=== PATIENT | male | born 1980 | race African-American/Black ===

== ENCOUNTER 2021-10-13 15:42 | Emergency (ER) | payer SELFPAY ==
[~2021-10-13] VITALS: Ht 182 cm; Wt 72.0 kg
[2021-10-13] MEDS ORDERED: fentaNYL INJ 100 MCG/2 ML AMP ONE (15:50)
[2021-10-13 15:54] LABS: BASOPHILS % (AUTO) 0 % (0-10); EOSINOPHILS % (AUTO) 1 % (0-10); HEMATOCRIT 42 % (40-54); HEMOGLOBIN 13.6 g/dL (13.3-17.7); LYMPHOCYTES # (AUTO) 2.5 10^3/uL (1.0-4.0); LYMPHOCYTES % (AUTO) 31 % (12-44); MEAN CORPUSCULAR HEMOGLOBIN 32 pg (25-34); MEAN CORPUSCULAR HGB CONC 33 g/dL (32-36); MEAN CORPUSCULAR VOLUME 97 fL (80-99); MEAN PLATELET VOLUME 9.4 fL (9.0-12.2); MONOCYTES # (AUTO) 0.5 10^3/uL (0.0-1.0); MONOCYTES % (AUTO) 6 % (0-12); NEUTROPHILS % (AUTO) 61 % (42-75); PLATELET COUNT 367 10^3/uL (130-400); WHITE BLOOD COUNT 8.1 10^3/uL (4.3-11.0)
[2021-10-13] MEDS ORDERED: fentaNYL INJ 100 MCG/2 ML AMP IVP ONE (16:00)
[2021-10-13 16:05] LABS: ALBUMIN 4.4 GM/DL (3.2-4.5); CHLORIDE 107 MMOL/L (98-107); POTASSIUM 3.3 MMOL/L (3.6-5.0); SODIUM 145 MMOL/L (135-145)
[2021-10-13 16:06] LABS: CALCIUM 9.8 MG/DL (8.5-10.1)
[2021-10-13 16:07] LABS: GLUCOSE 102 MG/DL (70-105); TOTAL PROTEIN 8.3 GM/DL (6.4-8.2)
[2021-10-13 16:08] LABS: CARBON DIOXIDE 22 MMOL/L (21-32)
[2021-10-13 16:09] LABS: BILIRUBIN,TOTAL 0.6 MG/DL (0.1-1.0)
[2021-10-13 16:11] LABS: ALKALINE PHOSPHATASE 86 U/L (40-136); CREATININE SERUM 0.99 MG/DL (0.60-1.30); GFR ESTIMATED 97
[2021-10-13 16:12] LABS: BUN/CREATININE RATIO 13
[2021-10-13 16:14] LABS: ALANINE AMINOTRANSFERASE 11 U/L (0-55)
[2021-10-13] MEDS ORDERED: HYDROmorphone 2 MG/ML VIAL (DILAUDID) IV ONE ×3 (16:15→20:45)
[2021-10-13] MEDS ORDERED: LORazepam INJ 2 MG/ML (ATIVAN) VIAL IVP ONE (16:15)
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
[2021-10-13] MEDS ORDERED: NS 100 ML (IVPB) BAG IV ONE (17:15)
[2021-10-13] MEDS ORDERED: IOHEXOL 350 MG/ML 100 ML (OMNIPAQUE 350) VIAL IV ONE (17:15)
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
--- NOTE | 2021-10-13 17:32 | Diagnostic Imaging Report ---
INDICATION: Leg pain. EXAMINATION: Four views were obtained. FINDINGS: The alignment is normal. There is no acute fracture or dislocation. The left hip and knee are grossly unremarkable. IMPRESSION: No acute fracture or dislocation. Dictated by: Dictated on workstation # [id number]
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
--- NOTE | 2021-10-13 17:48 | Diagnostic Imaging Report ---
INDICATION: Pain. EXAMINATION: Two views were obtained. FINDINGS: The alignment is normal. There is no fracture or dislocation. Soft tissues are unremarkable. IMPRESSION: No acute fracture or dislocation in the left forearm. Dictated by: Dictated on workstation # [id number]
--- NOTE | 2021-10-13 17:49 | Diagnostic Imaging Report ---
INDICATION: Pain. EXAMINATION: Two views were obtained. FINDINGS: There is a comminuted fracture of the left humeral head and neck. There also may be an anterior shoulder dislocation. Distal humerus is intact. IMPRESSION: Comminuted fracture with likely dislocation of the proximal left humerus, as described. Dictated by: Dictated on workstation # [id number]
--- NOTE | 2021-10-13 17:51 | Diagnostic Imaging Report ---
INDICATION: Pain. FINDINGS: There is a comminuted fracture of the proximal left humeral head and neck. The humerus also appears to be dislocated anteriorly. The glenoid and AC joint appear to be intact. Left lung is clear. IMPRESSION: Comminuted fracture/dislocation of the left glenohumeral joint, as described. Dictated by: Dictated on workstation # [id number]
--- NOTE | 2021-10-13 18:07 | Diagnostic Imaging Report ---
INDICATION: Pain. FINDINGS: There is a minimally displaced fracture of the proximal fibula. Distal tibia and fibula appear to be intact. Ankle mortise is symmetric. Soft tissues are unremarkable. IMPRESSION: Minimally displaced fracture through the proximal left fibular diaphysis. Dictated by: Dictated on workstation # [id number]
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
[2021-10-13] MEDS ORDERED: LACTATED RINGERS 1,000 ML IV ONE (20:15)
[2021-10-13 21:06] VITALS: BP 144/98
== END 2021-10-13 21:08 | disposition short-term general hospital (02) ==
LOC: ER 15:44
DX: S06.0X1A Concussion with loss of consciousness of 30 minutes or less, initial encounter (principal); S82.832A Other fracture of upper and lower end of left fibula, initial encounter for closed fracture; S42.92XA Fracture of left shoulder girdle, part unspecified, initial encounter for closed fracture; R40.2140 Coma scale, eyes open, spontaneous, unspecified time; R40.2250 Coma scale, best verbal response, oriented, unspecified time; R40.2360 Coma scale, best motor response, obeys commands, unspecified time; F17.210 Nicotine dependence, cigarettes, uncomplicated; V03.10XA Pedestrian on foot injured in collision with car, pick-up truck or van in traffic accident, initial encounter; Y92.410 Unspecified street and highway as the place of occurrence of the external cause
CPT/HCPCS: 70450; 70486; 71045; 71260; 72125; 73030; 73060; 73090; 73552; 73590; 74177; 80053; 84484; 85025; 93041; 99285; G0480; L0150; L1830; L3650; 36415; 80320; 93005

== ENCOUNTER 2021-11-16 10:03 | Emergency (ER) | payer SELFPAY ==
[~2021-11-16] VITALS: Ht 182.8 cm; Wt 72.3 kg
[2021-11-16 10:33] VITALS: BP 115/80
[2021-11-16] MEDS ORDERED: HYDROcodone/APAP 7.5 MG/325 MG (LORTAB, LORCET PLUS) TABLET PO STA (11:15)
[2021-11-16] MEDS ORDERED: ACHD5005 PO (11:18)
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
== END 2021-11-16 11:25 | disposition home or self-care (01) ==
LOC: EDUNIT# 10:03 → ER 10:05
DX: M25.512 Pain in left shoulder (principal); F17.210 Nicotine dependence, cigarettes, uncomplicated; Z96.612 Presence of left artificial shoulder joint; Z98.890 Other specified postprocedural states
CPT/HCPCS: 99283